=== PATIENT | male | born 1975 | race Caucasian/White ===

== ENCOUNTER 2025-01-11 20:51 | Emergency (ER) | payer OTHER ==
[2025-01-11 21:17] VITALS: TEMP 98.9
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
[2025-01-11] MEDS ORDERED: LEVOFLOXACIN 750MG/150ML D5W 750 MG/150 ML BAG IV ONE (21:50)
[2025-01-11] MEDS ORDERED: TORAdol 30 mg Injection ONE (21:50)
[2025-01-11 21:59] LABS: BASOPHIL % 0.5 % (0.2-1.2); Basophil (Absolute #) 0.04 x10^3/uL (0.01-0.08); Eosinophil (Absolute #) 0.33 x10^3/uL (0.04-0.54); Hematocrit 41.3 % (40.1-51.0); Hemoglobin 14.0 g/dL (13.7-17.5); IMMATURE GRAN # 0.03 x10^3u/L (0.001-0.031); IMMATURE GRAN % 0.4 % (0.001-0.429); Lymphocyte (Absolute #) 2.77 x10^3/uL (1.32-3.57); Mean Corpuscular Hemoglobin 30.7 pg (25.7-32.2); Mean Corpuscular Hgb Concent. 33.9 g/dL (32.3-36.5); Monocyte (Absolute #) 0.83 x10^3/uL (0.30-0.82); NUCLEATED RBC # 0.00 x10^3u/L (0.00-0.012); NUCLEATED RBC % 0.0 % (0.00-0.2); Platelet Count 176 x10^3/uL (163-337); Red Blood Count 4.56 x10^6/uL (4.63-6.08); White Blood Count 8.6 x10^3/uL (4.23-9.07)
[2025-01-11] MEDS: TORAdol 30 mg Injection IV ONE (22:02)
[2025-01-11] MEDS: LEVOFLOXACIN 750MG/150ML D5W 750 MG/150 ML BAG IV STA (22:05)
[2025-01-11 22:07] LABS: Glucose, Urine Negative (Negative); Protein,Urine Dip Trace (Negative); RBC 0-2 /HPF (0-5)
[2025-01-11 22:13] LABS: Calcium 8.7 mg/dL (8.4-10.2); Carbon Dioxide 27 mmol/L (22-30); Creatinine 1 1.05 mg/dL (0.66-1.25); EST GLOMERULAR FILTRATION RATE 85.9 ML/MIN; Glucose 105 mg/dL (74-106); Potassium 3.8 mmol/L (3.5-5.1); SGOT/AST 17 U/L (17-59); SGPT/ALT 10 U/L (0-50); Total Protein 6.7 g/dL (6.3-8.2)
[2025-01-11 22:23] LABS: Amphetamine,Urine NEGATIVE (NEGATIVE); Barbiturate,Urine NEGATIVE (NEGATIVE); Benzodiazepine,Urine NEGATIVE (NEGATIVE); Cocaine,Urine NEGATIVE (NEGATIVE); Methadone,Urine NEGATIVE (NEGATIVE); Opiate,Urine NEGATIVE (NEGATIVE); PCP,Urine NEGATIVE (NEGATIVE); THC,Urine POSITIVE (NEGATIVE)
[2025-01-11 22:25] LABS: VBG BASE EXCESS 4.9 (-2.0-2.0); VBG CARBOXYHEMOGLOBIN 7.3 % T HGB (0.0-6.9); VBG FIO2 21.0 %; VBG HCO3- 29.2 meq/L (22-28); VBG HEMOGLOBIN 14.9; VBG O2 SATURATION 98.8 (95-100); VBG PCO2 41.0 mm/Hg (42-55); VBG PO2 83.0 mm/Hg (25-40); VBG POTASSIUM 4.1 (3.5-5.1)
--- NOTE | 2025-01-11 22:54 | XRAY ---
CLINICAL HISTORY: abd pain COMPARISON: - TECHNIQUE: Contiguous axial images were obtained from the level of the diaphragm to the pubic symphysis without intravenous or oral contrast. Coronal and sagittal reconstructions were also performed and are indicated to increase the sensitivity for detecting clinically relevant pathology. The CT scan was performed according to ALARA (as low as reasonably achievable). FINDINGS: The visualized lung bases are clear. Evaluation of the abdominal and pelvic visceral organs is limited without intravenous contrast. The unenhanced liver, spleen, pancreas, and adrenal glands are grossly unremarkable. The gallbladder is present. The kidneys are normal in size and attenuation. A focus of parenchymal calcification is seen in the right kidney. There is no hydronephrosis or perinephric stranding. The ureters are normal in caliber. No adenopathy or fluid collections are seen. There is no evidence of focal or diffuse bowel wall thickening or evidence of bowel obstruction. The appendix is visualized in the right lower quadrant and appears within normal limits. The aorta is normal in caliber. The urinary bladder is normal in contour. The pelvic viscera are grossly unremarkable. An implant is seen in the right iliac bone and right acetabulum. No aggressive-appearing osseous lesions are identified. IMPRESSION: 1. A focus of parenchymal calcification is seen in the right kidney. 2. No other major abnormality is seen in the abdomen and pelvis in the present study. Electronically Signed by: Colton Seo MD. (01/11/2025 22:54:02 EDT)
[2025-01-11 23:15] VITALS: BP 118/93; PULSE 97; RESP 14
--- NOTE | 2025-01-11 23:17 | XRAY ---
CLINICAL HISTORY: confusion, ams COMPARISON: None. TECHNIQUE: Axial non-contrast CT scan of the brain was performed from the skull base to the high parietal region. One of the following dose reduction techniques was utilized for this exam: automated exposure control, adjustment of the mA and/or kV according to patient size, or use of iterative reconstruction. FINDINGS: Brain Parenchyma: Normal attenuation of the cerebral hemispheres, cerebellum, and brainstem. There is no evidence of acute infarct, hemorrhage, or mass effect. There are no abnormal areas of hypoattenuation or hyperattenuation. Ventricular System: The ventricles are normal in size and configuration. There is no evidence of hydrocephalus or ventricular enlargement. Subarachnoid Spaces: Normal sulci and cisterns are noted. There is no evidence of subarachnoid hemorrhage or extra-axial fluid collections. Cerebellum and Brainstem: There are no masses, lesions, or areas of abnormal density. Orbits: There is normal appearance of the globes, optic nerves, and extraocular muscles. There is no evidence of orbital masses or abnormal density. Sinuses: The paranasal sinuses are clear. There is no evidence of sinusitis or mucosal thickening. Mastoid Air Cells: The mastoid air cells are clear. There is no evidence of mastoiditis. Skull: Normal skull morphology is demonstrated. IMPRESSION: 1. There are no intra- or extra-axial hematomas or parenchymal territorial hypodense areas to suggest an acute ischemic insult. 2. Early changes of stroke may not be detected on a CT scan. If there is a strong clinical suspicion of stroke, then an MRI with diffusion-weighted imaging is suggested. Electronically Signed by: Roberto Enriquez MD. (01/11/2025 23:14:53 EDT)
[2025-01-11 23:30] VITALS: O2SAT 97
== END 2025-01-11 23:42 | disposition home or self-care (01) ==
LOC: ED 20:51
DX: N20.1 Calculus of ureter (principal); N39.0 Urinary tract infection, site not specified; R10.9 Unspecified abdominal pain; R41.0 Disorientation, unspecified; Z79.899 Other long term (current) drug therapy; Z72.0 Tobacco use